=== PATIENT | male | born 1955 | race Caucasian/White ===

== ENCOUNTER 2016-12-26 19:49 | Inpatient (IN) | payer SELFPAY ==
--- NOTE | ~2016-12-26 | HP ---
History And Physical [id number] [place]. [address] NAME: CHECO BRUCE : 51 STATUS : ADM IN [facility]#: [id number] AGE: 61 ADM/REG DATE : 12/27/16 MR#: [id number] REPORT SERV DATE: 12/27/16 DICTATED BY: IRINEO TRACY DATE: 12/27/16 REPORT STATUS : Draft TRANSCRIBED BY: MODL DATE: 12/27/16 DATE OF ADMISSION: 12/26/2016 REASON FOR ADMISSION: Non-STEMI. HISTORY OF PRESENT ILLNESS: Mr. Bruce 61-year-old male with COPD, hypertension, status post admission at [facility] for chest pain, diagnosed with non-STEMI acute diastolic congestive heart failure and uncontrolled hypertension, blood pressure 235/134. Ejection fraction found to be 60% with mitral regurgitation, actually improved over some remote evaluation where his was suppressed but he was treated medically in the meantime. He was scheduled for transfer to [place] for catheterization, however, the patient has mortally ill mother, and he left AMA to be by her bedside but came back again after visit to [place] with intention to undergo coronary catheterization. Chest pain continues 3/10 minor, pressure-like, no radiation with mild shortness of breath. No dizziness, nausea, or diaphoresis. Appetite has been okay without gastrointestinal or genitourinary complaints. No bleeding. No swelling. No focal neurologic complaints. He has chronic left shoulder pain with weakness in left upper extremity. 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 Remainder of review of systems are negative. PAST MEDICAL HISTORY: As mentioned above, history of rheumatoid arthritis, carotid stenosis, in fact has been seen by Vascular Surgery with intention to undergo a carotid stent once he was cleared from a cardiac standpoint. MEDICATION: Lipitor, Coreg, BiDil, hydrochlorothiazide, and Spiriva. ALLERGIES: NO ALLERGIES. FAMILY HISTORY: Positive for COPD. SOCIAL HISTORY: The patient smokes one-half pack of cigarettes per day. PHYSICAL EXAMINATION: VITAL SIGNS: On presentation blood pressure 129/86, pulse 87, respirations 20, afebrile, saturating 98%. GENERAL: A comfortable white female, oriented x3. No apparent distress. HEENT: Pupils are equal and reactive to light. Extraocular movements are intact. No cranial nerve deficits. Moist mucous membranes. Normal oropharynx. Trachea midline. NECK: Revealed no jugular venous distention or lymphadenopathy. Did have a faint carotid bruit. CARDIAC EXAM: Regular rate and rhythm. No murmurs, gallops, or rubs. LUNGS: Clear to auscultation bilaterally. Good excursion. ABDOMEN: Soft, nondistended, nontender. Bowel sounds normoactive. EXTREMITIES: No cyanosis, clubbing, or edema. He had diminished strength in left lower extremity. Diminished pulses and capillary refill. SKIN: Warm and dry. PSYCHIATRIC: He is appropriate. History And Physical [address] [address] NAME: CHECO BRUCE : 51 STATUS : ADM IN [facility]#: [id number] AGE: 61 ADM/REG DATE : 12/27/16 MR#: [id number] REPORT SERV DATE: 12/27/16 DICTATED BY: IRINEO TRACY DATE: 12/27/16 REPORT STATUS : Draft TRANSCRIBED BY: BERNARDA DATE: 12/27/16 LABORATORY EVALUATION: Sodium 135, potassium 3.6, chloride 105, bicarb 26, BUN 28, creatinine 1.8, glucose 168. Troponin I was 0.16. White count 6000, H and H 10 over 30, platelets 290, MCV 84, protein 144, No apparent disease. EKG with right bundle branch block with left anterior fascicular block. was negative. ASSESSMENT AND PLAN: 1. Chest pain, status post non-ST elevation myocardial infarction, coronary catheterization as planned. due to acute kidney injury, chronic kidney disease, bicarb drip with Mucomyst. We will discontinue hydrochlorothiazide. Continue BiDil, use aspirin heparin drip, morphine, oxygen, nitroglycerin paste. We also noticed that he had been anemic but hematocrit is satisfactory to undergo coronary evaluation, however, iron saturation guaiacs should be checked particularly with anticoagulation planned. 2. Hypertension. This is status post malignant blood pressure, currently satisfactory on BiDil. SAMMI/BERNARDA Irineo Tracy M.D. / [id number] CC: Leanna Piña, [facility]-
--- NOTE | ~2016-12-26 | DS ---
Discharge Summary [facility] [address] [place]. [address] NAME: CHECO BRUCE : 51 STATUS : DIS IN PAT#: [id number] AGE: 61 ADM/REG DATE : 12/27/16 MR#: [id number] REPORT SERV DATE: 12/29/16 DICTATED BY: MERCEDES NIÑO DATE: 12/28/16 REPORT STATUS : Draft TRANSCRIBED BY: MODL DATE: 12/28/16 ADMISSION DATE: 12/27/2016 DISCHARGE DATE: 12/28/2016 DISCHARGE DIAGNOSES: 1. Iij-ZI-torlntbli myocardial infarction, status post three stents, required Plavix and aspirin for a year. 2. Diastolic dysfunction, chronic. 3. Hypertension, uncontrolled. 4. Tobacco abuse. 5. Peripheral vascular disease. HISTORY OF PRESENT ILLNESS: This is a 61-year-old male patient, who came to the hospital with chest pain. Please see dictated H and P done by Dr. Carlos. HOSPITAL COURSE: He was admitted to hospital for cardiac catheterization and had three stents done with Dr. Wellington. Tolerated well and he was recommended taking dual antiplatelet therapy for a year. He voiced understanding about his current treatment plan and we are going to resume his home medication for his blood pressure control. Highly recommended tobacco abuse cessation and also need to follow up with Dr. Bailey for the carotid stenosis. DISCHARGE MEDICATIONS: 1. Aspirin 81 mg once a day. 2. Lipitor 40 mg once at nighttime. 3. Carvedilol 25 mg twice a day. 4. Spiriva one capsule once a day. 5. BiDil 20/37.5 three times a day. 6. Hydrochlorothiazide 25 mg once a day. 7. Nicotine patch. DISPOSITION: The patient is discharged to home in stable condition. Need to follow up with paper stacker, Dr. Bailey, and primary care physician. EKL/MODL Mercedes Niño M.D. / [id number] CC: Mercedes Niño M.D.
[~2016-12-26 19:49] MED LIST: APRES25 PO; ASA5GR PO; ASAB PO; BIDIL20/37 PO; COREG25 PO; COZ50 PO; HABIT14 TOP; HYDROCHLOROT25 MG PO; HYT2 PO; KLOR-CON M2020 MEQ PO; L20 PO; LIPITOR40 PO; LISINOPRIL40 MG PO; MELA3 PO; MEVACOR PO; NICODERM C21 MG/241 TOP; SPIRIVA INH; SPIRO25 PO; VENTOLIN HFA INH; [UNRECOGNIZED DRUG - OTHER] PO
[2016-12-26 20:28] LABS: BASOPHILS 0.3 %; BASOPHILS ABSOLUTE 0.02 10/3/uL (0.0-0.16); EOSINOPHILS 4.3 %; EOSINOPHILS ABSOLUTE 0.25 10/3/uL (0.0-0.53); ER CBC TAT 0 Hrs 00 Mins; HEMATOCRIT 30.9 % (40.0-51.0); HEMOGLOBIN 10.4 g/dL (13.6-17.8); IMMATURE GRANULOCYTES 1.4 %; IMMATURE GRANULOCYTES ABSOLUTE 0.08 10/3/uL (0.0-0.11); LYMPHOCYTES 16.5 %; LYMPHOCYTES ABSOLUTE 0.97 10/3/uL (0.67-4.30); MEAN CORPUS HGB CONC 33.7 g/dL (32.0-36.0); MEAN CORPUSCULAR HEMOGLOB 28.3 pg (26.0-34.0); MEAN CORPUSCULAR VOLUME 84.2 fL (80-100); MEAN PLATELET VOLUME 8.4 fL (9.2-13.0); MONOCYTES 6.8 %; NEUTROPHILS 70.7 %; NEUTROPHILS ABSOLUTE 4.16 10/3/uL (2.02-8.40); PLATELET COUNT 290 10/3/uL (150-400); RBC DISTRIBUTION WIDTH 18.9 % (12.0-16.0); RED CELL COUNT 3.67 10/6/uL (4.7-6.1); WHITE BLOOD CELLS 5.9 10/3/uL (4.5-10.5)
[2016-12-26 20:29] LABS: MANUAL DIFF NO %
[2016-12-26 20:38] LABS: INTERNATIONAL NORMAL RATI 1.1 UNITS (-); PARTIAL THROMBO TIME 30.1 SEC (22.5-37.2); PROTIME (NOT ORD) 14.1 SEC (12.0-14.5)
[2016-12-26 20:46] LABS: BUN (BLOOD UREA NITROGEN) 28 MG/DL (6-23); CALCIUM, SERUM 8.6 MG/DL (8.5-10.4); CHEST PAIN PROFILE TAT 0 Hrs 00 Mins; CHLORIDE, SERUM 103 MMOL/L (96-112); CO2 (CARBON DIOXIDE) 26 MMOL/L (24-34); CREATININE 1.77 MG/DL (0.70-1.30); GFR AFRICAN AMERICAN 46 ML/MIN (>=60); GFR NON AFRICAN AMERICAN 40 ML/MIN (>=60); POTASSIUM, SERUM 3.6 MMOL/L (3.5-5.3); SODIUM, SERUM 135 MMOL/L (135-148)
[2016-12-26 20:53] LABS: GLUCOSE, SERUM 168 MG/DL (60-99); TROPONIN I 0.16 NG/ML (<0.05)
[2016-12-27 08:42] LABS: % IRON SAT 18 % (20-50); IRON BINDING CAPACITY 227 MCG/DL (250-450); IRON, SERUM 40 MCG/DL (35-150)
[2016-12-27 09:48] LABS: INTERNATIONAL NORMAL RATI 1.1 UNITS (-); PARTIAL THROMBO TIME 47.6 SEC (22.5-37.2); PROTIME (NOT ORD) 14.2 SEC (12.0-14.5)
[2016-12-27 09:58] LABS: A/G RATIO 0.8 (0.7-1.9); ALBUMIN 2.8 G/DL (3.5-5.0); ALKALINE PHOSPHATASE 102 U/L (45-117); BUN (BLOOD UREA NITROGEN) 22 MG/DL (6-23); CALCIUM, SERUM 8.6 MG/DL (8.5-10.4); CHLORIDE, SERUM 103 MMOL/L (96-112); CO2 (CARBON DIOXIDE) 26 MMOL/L (24-34); CREATININE 1.43 MG/DL (0.70-1.30); GFR AFRICAN AMERICAN 60 ML/MIN (>=60); GFR NON AFRICAN AMERICAN 52 ML/MIN (>=60); GLOBULIN 3.5 G/DL (2.5-4.1); GLUCOSE, SERUM 113 MG/DL (60-99); POTASSIUM, SERUM 3.9 MMOL/L (3.5-5.3); SGOT(AST) 12 U/L (5-40); SGPT(ALT) 18 U/L (5-65); SODIUM, SERUM 136 MMOL/L (135-148); TOTAL BILIRUBIN 0.3 MG/DL (0-1.2); TOTAL PROTEIN 6.3 G/DL (6.0-8.5)
[2016-12-28 04:44] LABS: BASOPHILS 0.6 %; BASOPHILS ABSOLUTE 0.03 10/3/uL (0.0-0.16); EOSINOPHILS 6.3 %; EOSINOPHILS ABSOLUTE 0.34 10/3/uL (0.0-0.53); HEMATOCRIT 30.6 % (40.0-51.0); HEMOGLOBIN 10.2 g/dL (13.6-17.8); IMMATURE GRANULOCYTES 0.9 %; IMMATURE GRANULOCYTES ABSOLUTE 0.05 10/3/uL (0.0-0.11); LYMPHOCYTES 19.9 %; LYMPHOCYTES ABSOLUTE 1.07 10/3/uL (0.67-4.30); MEAN CORPUS HGB CONC 33.3 g/dL (32.0-36.0); MEAN CORPUSCULAR HEMOGLOB 28.1 pg (26.0-34.0); MEAN CORPUSCULAR VOLUME 84.3 fL (80-100); MEAN PLATELET VOLUME 8.6 fL (9.2-13.0); MONOCYTES 8.7 %; MONOCYTES ABSOLUTE 0.47 10/3/uL (0.21-1.20); NEUTROPHILS 63.6 %; NEUTROPHILS ABSOLUTE 3.43 10/3/uL (2.02-8.40); PLATELET COUNT 279 10/3/uL (150-400); RBC DISTRIBUTION WIDTH 19.3 % (12.0-16.0); RED CELL COUNT 3.63 10/6/uL (4.7-6.1); WHITE BLOOD CELLS 5.4 10/3/uL (4.5-10.5)
[2016-12-28 04:48] LABS: MANUAL DIFF NO %
[2016-12-28 04:56] LABS: BUN (BLOOD UREA NITROGEN) 19 MG/DL (6-23); CALCIUM, SERUM 8.5 MG/DL (8.5-10.4); CHLORIDE, SERUM 103 MMOL/L (96-112); CO2 (CARBON DIOXIDE) 25 MMOL/L (24-34); CREATININE 1.56 MG/DL (0.70-1.30); GFR AFRICAN AMERICAN 54 ML/MIN (>=60); GFR NON AFRICAN AMERICAN 47 ML/MIN (>=60); GLUCOSE, SERUM 95 MG/DL (60-99); PHOSPHORUS, SERUM 3.3 MG/DL (2.5-4.5); SODIUM, SERUM 139 MMOL/L (135-148)
[2016-12-28] MEDS ORDERED: NITROSTAT0.4 MG SL (08:13)
[2016-12-28] MEDS ORDERED: PLAVIX PO (08:13)
== END 2016-12-28 12:25 | disposition home or self-care (01) | DRG 247 ==
LOC: ER 19:49 → 5NO 12-27 01:43 → SSU1 12-27 12:07
PROVIDERS: Hospitalist; Internal Medicine
PROC: 027136Z Dilation of Coronary Artery, Two Arteries with Three Drug-eluting Intraluminal Devices, Percutaneous Approach (ICD-10-PCS; principal; 2016-12-27)
PROC: 4A023N7 Measurement of Cardiac Sampling and Pressure, Left Heart, Percutaneous Approach (ICD-10-PCS; 2016-12-27)
PROC: B2111ZZ Fluoroscopy of Multiple Coronary Arteries using Low Osmolar Contrast (ICD-10-PCS; 2016-12-27)
DX: I21.4 Non-ST elevation (NSTEMI) myocardial infarction (principal); I50.32 Chronic diastolic (congestive) heart failure; N18.3 Chronic kidney disease, stage 3 (moderate); I13.0 Hypertensive heart and chronic kidney disease with heart failure and stage 1 through stage 4 chronic kidney disease, or unspecified chronic kidney disease; I45.2 Bifascicular block; I25.10 Atherosclerotic heart disease of native coronary artery without angina pectoris; I73.9 Peripheral vascular disease, unspecified; F17.210 Nicotine dependence, cigarettes, uncomplicated; J44.9 Chronic obstructive pulmonary disease, unspecified; I34.0 Nonrheumatic mitral (valve) insufficiency; M06.9 Rheumatoid arthritis, unspecified; I65.29 Occlusion and stenosis of unspecified carotid artery; E66.9 Obesity, unspecified; Z82.5 Family history of asthma and other chronic lower respiratory diseases
CPT/HCPCS: 71020; 80048; 80053; 80069; 83540; 83550; 83735; 84484; 85025; 85610; 85730; 93005; 93458; 94640; 99152; 99153; 99285; A9270-GY; C1725; C1769; C1874; C1887; C1894; C9600; J0360; J0583; J2250; J3010; Q9967